=== PATIENT | female | born 1995 | race Two or more races ===

== ENCOUNTER 2018-03-19 17:07 | Emergency (ER) | payer MEDICAID ==
[~2018-03-19] VITALS: Ht 172.7 cm; Wt 74.8 kg
[2018-03-19 17:22] VITALS: BP 116/68
[2018-03-19] MEDS ORDERED: methylPREDNISolone SOD SUCC 125 MG/2 ML VL IM ONE (19:45)
== END 2018-03-19 19:52 | disposition home or self-care (01) ==
LOC: ER 17:07
DX: H10.13 Acute atopic conjunctivitis, bilateral (principal); Z88.8 Allergy status to other drugs, medicaments and biological substances
CPT/HCPCS: 96372; 99283; J2930